=== PATIENT | female | born 1995 | race Hispanic/Latino ===

== ENCOUNTER 2016-11-21 10:22 | Emergency (ER) | payer OTHER ==
[2016-11-21] MEDS ORDERED: OPTIRAY 350 100 ML VIAL HMH IV ONE (10:23)
[2016-11-21] MEDS ORDERED: ONDANSETRON 4 MG VIAL ONE (11:30)
[2016-11-21] MEDS ORDERED: KETOROLAC 30 MG/ML VIAL ONE (11:31)
[2016-11-21] MEDS ORDERED: MORPHINE 4 MG/ML SYR ONE (14:16)
== END 2016-11-21 15:53 | disposition home or self-care (01) ==
LOC: ER 10:22
DX: E28.2 Polycystic ovarian syndrome (principal)
CPT/HCPCS: 36415 ×2; 74177 ×2; 76830 ×2; 80053 ×2; 81003 ×2; 83690 ×2; 84703 ×2; 85025 ×2; 87491 ×2; 87591 ×2; 87800 ×2; 96374; 96375; J1885; J2270; J2405; Q9967